=== PATIENT | male | born 1970 | race Caucasian/White ===

== ENCOUNTER → 2020-12-18 12:37 | Outpatient (BNVA) | payer SELFPAY | PROVIDERS: PCP Nurse Practitioner Family; Visit Provider Physician Assistant Medical | DX: R76.11 Nonspecific reaction to tuberculin skin test without active tuberculosis (principal) ==

== ENCOUNTER 2021-02-09 09:46 | Outpatient (REF) | payer OTHER, SELFPAY ==
[2021-02-09 10:35] LABS: Binax Internal Control QC Valid; Binax Lot number: 9864; Binax Now Covid-19 Ag Negative (Negative)
== END 2021-02-09 09:47 | disposition home or self-care (01) ==
LOC: HO.LAB 09:46
PROVIDERS: Visit Provider Internal Medicine
DX: Z20.822 Contact with and (suspected) exposure to COVID-19 (principal)
CPT/HCPCS: 36415; C9803

== ENCOUNTER → 2021-02-27 10:51 | Outpatient (REF) | payer OTHER, SELFPAY | LOC: HO.SL 10:51 | PROVIDERS: PCP Nurse Practitioner Family; Visit Provider Nurse Practitioner Family | DX: G47.30 Sleep apnea, unspecified (principal) | CPT/HCPCS: 95806 ==

== ENCOUNTER → 2021-03-26 12:46 | Outpatient (BNVA) | payer OTHER, SELFPAY | PROVIDERS: PCP Nurse Practitioner Family; Referring Provider Nurse Practitioner Family; Visit Provider Psychiatry & Neurology Neurology | DX: G47.33 Obstructive sleep apnea (adult) (pediatric) (principal) | CPT/HCPCS: 99202 ==

== ENCOUNTER → 2021-04-15 10:59 | Outpatient (BNVA) | payer OTHER, SELFPAY | PROVIDERS: PCP Nurse Practitioner Family; Referring Provider Nurse Practitioner Family; Visit Provider Surgery | DX: L72.0 Epidermal cyst (principal) | CPT/HCPCS: 99202 ==

== ENCOUNTER → 2021-11-12 08:04 | Outpatient (BNVA) | payer OTHER, SELFPAY | PROVIDERS: PCP Nurse Practitioner Family; Visit Provider Psychiatry & Neurology Neurology | DX: G47.33 Obstructive sleep apnea (adult) (pediatric) (principal) | CPT/HCPCS: 99212 ==

== ENCOUNTER → 2022-03-25 13:51 | Outpatient (BNV) | payer OTHER, SELFPAY | PROVIDERS: PCP Nurse Practitioner Family; Visit Provider Internal Medicine | DX: D75.1 Secondary polycythemia (principal) | CPT/HCPCS: 99204; 99213; G2211 ==

== ENCOUNTER 2022-03-26 09:09 | Outpatient (REF) | payer OTHER, SELFPAY | END 2022-03-26 09:10 | disposition home or self-care (01) | LOC: HO.BBR 09:09 | PROVIDERS: Visit Provider Internal Medicine | DX: D75.1 Secondary polycythemia (principal) | CPT/HCPCS: 85014; 99195 ==

== ENCOUNTER 2022-04-23 10:45 | Outpatient (REF) | payer OTHER, SELFPAY | END 2022-04-23 10:46 | disposition home or self-care (01) | LOC: HO.BBR 10:45 | PROVIDERS: PCP Nurse Practitioner Family; Visit Provider Internal Medicine | DX: D75.1 Secondary polycythemia (principal) | CPT/HCPCS: 85014; 85018; 99195 ==

== ENCOUNTER 2022-05-29 11:50 | Outpatient (REF) | payer OTHER, SELFPAY | END 2022-05-29 11:51 | disposition home or self-care (01) | LOC: HO.BBR 11:50 | PROVIDERS: Visit Provider Internal Medicine | DX: D75.1 Secondary polycythemia (principal) | CPT/HCPCS: 85014; 85018; 99195 ==

== ENCOUNTER 2022-11-21 08:45 | Outpatient (REF) | payer OTHER, SELFPAY | END 2022-11-21 08:46 | disposition home or self-care (01) | LOC: HO.BBR 08:45 | PROVIDERS: PCP Nurse Practitioner Family; Visit Provider Internal Medicine | DX: D75.1 Secondary polycythemia (principal) | CPT/HCPCS: 85014; 85018; 99195 ==

== ENCOUNTER 2022-12-22 09:28 | Outpatient (REF) | payer OTHER, SELFPAY | END 2022-12-22 09:29 | disposition home or self-care (01) | LOC: HO.BBR 09:28 | PROVIDERS: PCP Nurse Practitioner Family; Visit Provider Internal Medicine | DX: D75.1 Secondary polycythemia (principal) | CPT/HCPCS: 85014; 85018; 99195 ==

== ENCOUNTER 2023-01-28 08:55 | Outpatient (REF) | payer OTHER, SELFPAY | END 2023-01-28 08:56 | disposition home or self-care (01) | LOC: HO.BBR 08:55 | PROVIDERS: PCP Nurse Practitioner Family; Visit Provider Internal Medicine | DX: D75.1 Secondary polycythemia (principal) | CPT/HCPCS: 85014; 85018; 99195 ==

== ENCOUNTER 2023-02-24 07:36 | Outpatient (AMB) | payer OTHER, SELFPAY ==
--- NOTE | 2023-02-24 07:25 | A.OFFPC_ITS ---
Intake Visit Reasons: Medications F/U Allergies lactose [LACTOSE] Allergy (Intermediate, Verified 11/12/21 08:13) NAUSEA & VOMITING Medication List - Last Reconciled 02/24/23 by DAYSI Gardner- bupropion HCl (Wellbutrin SR) 100 mg PO BID 90 days escitalopram oxalate (Lexapro) 20 mg (2 x 10 mg) PO DAILY 90 days Tobacco use date assessed: 11/15/20 HPI Medications F/U HPI Details Depression: Pt reports that he has been taking 20mg of lexapro which is helpful. Will continue this dose. He is also taking bupropion 100mg bid. Pt is having trouble finding a psychiatrist (who was previously prescribing these meds), will have team reach out to pt regarding this. Will refill meds. Denies any SI and HI. NOTE: pt is staying at a friend's house, was having difficulty with his family, had moved to [place] then came back. [facility] Medical History Epidermal cyst Family History Other Mental health disorder Substance use disorder Social History (Updated 03/25/22 @ 14:31 by Nikia Graff) Household Members: Family Housing: Apartment Alcohol intake: current Alcohol intake frequency: holidays/special occasions only Patient Tobacco Use Status: Former Tobacco user Tobacco use type: Cigarette Years Smoked: 30 years service: No Current occupational status: employed Questionnaire Thrive Questionnaire Date Thrive assessed: 11/15/20 Review of Systems Const Reports as per HPI Physical exam (Primary Care) Tobacco/Smoking Status: Tobacco use Status Tobacco use date assessed 11/15/20 01/18/21 10:34 Patient Tobacco Use Status Former Tobacco user 03/26/21 13:10 Tobacco use type Cigarette 03/25/22 14:31 Thrive Assessment: Date of Thrive Assessment Date Thrive assessed 11/15/20 01/18/21 10:34 Const General: cooperative Orientation/consciousness: patient oriented x3 Neuro General: patient oriented x3 Psych Appearance: grossly normal Mental Status: mental status grossly normal Speech and movement: Clear speech present Affect: normal affect Attitude: cooperative Thought process: Normal thought process present Thought content: Normal thought content present Insight: Good insight present (Psych) Judgement: Good judgement present (Psych) Assessment and Plan Assessment & Plan (1) Anxiety with depression: Code(s): F41.8 - Other specified anxiety disorders Plan: Meds refilled, team will reach out to pt for a psychiatrist (2) Screening PSA (prostate specific antigen): Code(s): Z12.5 - Encounter for screening for malignant neoplasm of prostate Plan The patient agreed to the use of a medical oncologist for this encounter. Scribed for DAYSI Carreon-BC by Jessi Yu medical oncologist, on 02/24/2023 at 07:25 EST. Orders: Orders Comprehensive [place]. Panel Fast Today Z00.00 - Encounter for general adult medical examination without abnormal findings Prostate Specific Antigen Scr Today Z12.5 - Encounter for screening for malignant neoplasm of prostate Complete Blood Count Auto Diff Today Z00.00 - Encounter for general adult medical examination without abnormal findings TSH reflex Free T4 Today Z00.00 - Encounter for general adult medical examination without abnormal findings UA CC w/rflx Micro + Cult Today Z00.00 - Encounter for general adult medical examination without abnormal findings Lipid Panel Today Z00.00 - Encounter for general adult medical examination without abnormal findings Medications: Changed From bupropion HCl (Wellbutrin SR) 100 mg PO BID To bupropion HCl (Wellbutrin SR) 100 mg PO BID 90 days 180 tabs 0RF From escitalopram oxalate (Lexapro) 20 mg PO DAILY To escitalopram oxalate (Lexapro) 20 mg (2 x 10 mg) PO DAILY 90 days 180 tabs 0RF Refilled bupropion HCl (Wellbutrin SR) 100 mg PO BID 90 days 180 tabs 0RF Coding Level of Care Code Tele Est Pt Level 3 (17926) Diagnoses Anxiety with depression F41.8 Screening PSA (prostate specific antigen) Z12.5
== END 2023-02-24 08:01 | disposition home or self-care (01) ==
PROVIDERS: PCP Nurse Practitioner Family; Visit Provider Nurse Practitioner Family
DX: F41.8 Other specified anxiety disorders (principal); Z12.5 Encounter for screening for malignant neoplasm of prostate
CPT/HCPCS: 99213

== ENCOUNTER 2023-03-04 09:02 | Outpatient (REF) | payer OTHER, SELFPAY | END 2023-03-04 09:03 | disposition home or self-care (01) | LOC: HO.BBR 09:02 | PROVIDERS: PCP Nurse Practitioner Family; Visit Provider Internal Medicine | DX: D75.1 Secondary polycythemia (principal) | CPT/HCPCS: 85014; 85018; 99195 ==

== ENCOUNTER 2023-05-22 09:07 | Outpatient (REF) | payer OTHER, SELFPAY ==
[2023-05-22 10:30] LABS: MANUAL DIFF FLAG NO
[2023-05-22 10:45] LABS: Basophils Percent Auto 0.3 % (0-2); Eosinophils Absolute Auto 0.2 X10*3/uL (0.0-0.4); Eosinophils Percent Auto 3.6 % (0-4); Hematocrit 49.9 % (42.0-52.0); Hemoglobin 16.3 g/dl (14.0-18.0); Imm Gran Abs Auto 0.01 X10*3/uL (0.00-0.03); Imm Gran Pct Auto 0.2 % (0.0-0.4); Lymphocytes Absolute Auto 1.7 X10*3/uL (1.2-4.9); Lymphocytes Percent Auto 28.8 % (20-40); Mean Corpuscular HGB Conc 32.7 g/dl (31.0-36.0); Mean Corpuscular Hemoglobin 26.2 pg (27.0-33.0); Mean Corpuscular Volume 80.2 fL (80.0-98.0); Mean Platelet Volume 10.9 fL (9.4-12.4); Monocytes Absolute Auto 0.5 X10*3/uL (0.1-1.2); Monocytes Percent Auto 8.9 % (2-11); Neutrophils Absolute Auto 3.4 x10*3/uL (2.0-8.3); Neutrophils Percent Auto 58.2 % (45-73); Platelet Count 255 X10*3/uL (160-400); Red Blood Count 6.22 X10*6/uL (4.60-5.80); Red Cell Distribution Width 18.2 % (11.0-16.0); White Blood Count 5.8 X10*3/uL (4.8-10.8)
[2023-05-22 11:15] LABS: Prostate Specific Antigen Scr 1.58 ng/mL (<0.05-4.0)
[2023-05-22 11:47] LABS: TSH reflex Free T4 1.82 uIU/mL (0.32-4.0)
[2023-05-22 11:52] LABS: Anion Gap 13 (12-20)
[2023-05-22 11:58] LABS: Alanine Aminotransferase 31 U/L (0-40); Albumin Level 4.3 g/dL (3.5-5.0); Alkaline Phosphatase 87 U/L (39-117); Aspartate Amino Transferase 21 U/L (5-37); Bilirubin Total 0.4 mg/dL (0.0-1.0); Blood Urea Nitrogen 11 mg/dL (9-16); Calcium 9.4 mg/dL (8.4-10.2); Carbon Dioxide 23 mmol/L (22-29); Chloride 107 mmol/L (96-108); Cholesterol 264 mg/dL (<200); Estimated Glomerular Filt Rate > 60; Glucose Fasting 86 mg/dL (60-99); HDL Cholesterol 39 mg/dL (>40); LDL Cholesterol Calculated 189 mg/dL (<100); Potassium 4.4 mmol/L (3.3-5.1); Sodium 139 mmol/L (135-145); Total Protein 7.5 g/dL (6.5-8.0); Triglycerides 181 mg/dL (<150)
== END 2023-05-22 09:08 | disposition home or self-care (01) ==
LOC: HO.HMGCLDS 09:07
PROVIDERS: Internal Medicine; PCP Nurse Practitioner Family; Visit Provider Nurse Practitioner Family
DX: Z00.00 Encounter for general adult medical examination without abnormal findings (principal); D75.1 Secondary polycythemia; Z12.5 Encounter for screening for malignant neoplasm of prostate
CPT/HCPCS: 36415; 80053; 80061; 84153; 84443; 85025

== ENCOUNTER 2023-05-27 09:06 | Outpatient (REF) | payer OTHER, SELFPAY | END 2023-05-27 09:07 | disposition home or self-care (01) | LOC: HO.BBR 09:06 | PROVIDERS: PCP Nurse Practitioner Family; Visit Provider Internal Medicine | DX: D75.1 Secondary polycythemia (principal) | CPT/HCPCS: 85014; 85018; 99195 ==

== ENCOUNTER 2023-07-27 09:23 | Outpatient (REF) | payer OTHER, SELFPAY | END 2023-07-27 09:24 | disposition home or self-care (01) | LOC: HO.BBR 09:23 | PROVIDERS: PCP Nurse Practitioner Family; Visit Provider Internal Medicine | DX: D75.1 Secondary polycythemia (principal) | CPT/HCPCS: 85014; 85018; 99195 ==

== ENCOUNTER 2023-11-16 13:59 | Outpatient (REF) | payer OTHER, SELFPAY | END 2023-11-16 14:00 | disposition home or self-care (01) | LOC: HO.BBR 13:59 | PROVIDERS: PCP Nurse Practitioner Family; Visit Provider Internal Medicine | DX: D75.1 Secondary polycythemia (principal) | CPT/HCPCS: 85018; 99195 ==

== ENCOUNTER 2024-02-16 10:01 | Outpatient (REF) | payer OTHER, SELFPAY | END 2024-02-16 10:02 | disposition home or self-care (01) | LOC: HO.BBR 10:01 | PROVIDERS: Visit Provider Internal Medicine | DX: D75.1 Secondary polycythemia (principal) | CPT/HCPCS: 85014; 85018; 99195 ==

== ENCOUNTER 2024-02-22 10:58 | Outpatient (AMB) | payer OTHER, SELFPAY ==
--- NOTE | 2024-02-22 11:12 | A.OFFVIS_ITS ---
Vital Signs 02/22/24 11:18 Height 5 ft 11 in Weight 285 lb 6 oz BMI 39.8 BP 120/72 Blood Pressure Location Lt brachial Position Sitting Pulse 80 Pulse Source Pulse Oximeter Pulse Oximetry (%) 99 Oxygen Delivery Method Room Air Intake Visit Reasons: cpap options see workload Intake Note: Patient presents for a follow up for JORGE LUIS and CPAP options last seen 11/2021. Pt reports not having much energy. [employer] Required: No Accompanied by: Self / Same As Patient Allergies lactose [LACTOSE] Allergy (Intermediate, Verified 02/22/24 11:59) NAUSEA & VOMITING Medication List - Last Reconciled 02/22/24 by Jon Bear PA-C bupropion HCl SR (Wellbutrin SR) 100 mg PO BID 90 days escitalopram oxalate 10 mg (1/2 x 20 mg) PO DAILY 90 days MDD 20mg gabapentin ER 300 mg PO QPM HPI Comments Details: 50y/o male comes for follow up of JORGE LUIS. Main complaints-hypersomnia, loud snoring . Home sleep test on 02/28/21 showed severe sleep apnea AHI 51/hr O2 liz 71 % CPAP compliance Report: 11/2023/ - 02/21/2024 CPAP 5-20 cmH20 >4 hours 89days 98% Pressues 7.2- 11.5 Leaks 18.6 to 96.9 AHI is 1.2 He continues to report daytime fatigue, and not feeling refresed in the morning. He has morning headaches, mild headaches by the end of work day, [employer]. He reports discomfort with mask and mask straps always leaking and noisy. He complaints of discomfort bilaterally legs when going to sleep or watching TV at night, the legs feel jumpy and can't get comfortable, he tosses and turns. He denies cramps, or spasms. He tried magnesium 400mg. Has diffficulty falling asleep and staying asleep, he takes unisom OTC then finally falls asleep. He uses a medium sized mask and it covers his mouth and nose, but has indentations in the back of his neck from the straps. Would like to see the sleep dentistry to get evaluated for a mouth gaurd. He has terrible anxiety and sometimes will have a panic attack. He quit smoking, is trying to eat well. Drinks occasionally, stopped using weed. [facility] Medical History Epidermal cyst Family History Other Mental health disorder Substance use disorder Social History Household Members: Family Housing: Apartment Alcohol intake: current Alcohol intake frequency: holidays/special occasions only Patient Tobacco Use Status: Former Tobacco user Tobacco use type: Cigarette Years Smoked: 30 years service: No Current occupational status: employed Review of Systems Const All systems reviewed & are unremarkable except as noted in HPI and below Physical Exam Vital Signs: Last Vital Signs Pulse 80 02/22/24 11:18 BP 120/72 02/22/24 11:18 Pulse Ox 99 02/22/24 11:18 Oxygen Delivery Method Room Air 02/22/24 11:18 BMI result Body Mass Index 39.8 ALert awake oriented X3 Mood- stable Speech- normal Cognition- normal Neck size -21 Const Nutritional Appearance: obese Orientation/consciousness: patient oriented x3 HEENT Other: mallampatti grade 4 Head: Yes normal to inspection Neuro General: patient oriented x3, gait normal, tone normal, moves all extremities and no focal motor deficits Assessment & Plan Assessment & Plan (1) Sleep apnea: Code(s): G47.30 - Sleep apnea, unspecified Category: Medical Qualifiers: Sleep apnea type: unspecified type Qualified Code(s): G47.30 - Sleep apnea, unspecified (2) Obstructive sleep apnea hypopnea, severe: Code(s): G47.33 - Obstructive sleep apnea (adult) (pediatric) Category: Medical (3) Anxiety with depression: Code(s): F41.8 - Other specified anxiety disorders Category: Medical (4) RLS (restless legs syndrome): Code(s): G25.81 - Restless legs syndrome Category: Medical Plan PSG: In lab sleep evaluation for Restless RLS? PLMD? PLMS Will start him on Gabapentin 300mg PO at bedtime. Anxiety and Depression with Panic Attacks: Will continue Escitalopram 20mg PO at bedtime. Will Continue Buproprion 100mg PO BID Referral Dentistry Dental Referral for Mouth Gaurd, as patient can not tolerate the mask, Amazon find liners, set up appt with [facility] for mask and pressure adjustments, trial various liners, silk liners through the sleep store. Discussed ENT - Referral for DISE procedure, he will research it and f/u next time. Discussed Weight loss, BMI is elevated, and daily exercise to manage anxiety and weight loss. Will follow up in 3 months for RLS? PLMD? PLMS? Orders: Referrals Dentistry Referral G47.30 - Sleep apnea, unspecified, G47.33 - Obstructive sleep apnea (adult) (pediatric) Medications: New gabapentin ER take one tablet at bedtime by mouth. 300 mg PO QPM 30 tabs 0RF Restless Legs Syndrome G25.81 - Restless legs syndrome Changed From escitalopram oxalate 20 mg PO DAILY 90 days 90 tabs 1RF F41.8 - Other specified anxiety disorders To escitalopram oxalate May take 10mg PO at night and one 10mg PO in the morning for a total 20mg PO per day. 10 mg (1/2 x 20 mg) PO DAILY 90 days 45 tabs 1RF MDD 20mg F41.8 - Other specified anxiety disorders Coding Level of Care Code Est Pt Level 4 (76462) Diagnoses Sleep apnea, unspecified type G47.30 Sleep apnea type: unspecified type Obstructive sleep apnea hypopnea, severe G47.33 Anxiety with depression F41.8 RLS (restless legs syndrome) G25.81 Time Spent (min) 30 Comment improving
[2024-02-22 11:18] VITALS: BP 120/72; PULSE 80; O2SAT 99; BMI 39.8
== END 2024-02-22 12:09 | disposition home or self-care (01) ==
PROVIDERS: PCP Nurse Practitioner Family; Visit Provider Physician Assistant Medical
DX: G47.30 Sleep apnea, unspecified (principal); G47.33 Obstructive sleep apnea (adult) (pediatric); F41.8 Other specified anxiety disorders; G25.81 Restless legs syndrome
CPT/HCPCS: 99214

== ENCOUNTER → 2024-02-22 10:58 | Outpatient (BNVA) | payer OTHER, SELFPAY | PROVIDERS: PCP Nurse Practitioner Family; Visit Provider Physician Assistant Medical | DX: G47.33 Obstructive sleep apnea (adult) (pediatric) (principal); G47.30 Sleep apnea, unspecified; G25.81 Restless legs syndrome; F41.8 Other specified anxiety disorders | CPT/HCPCS: 99212 ==

== ENCOUNTER 2024-04-20 | Outpatient (REF) | payer OTHER, SELFPAY ==
--- OUTSIDE RECORDS SUMMARY | 2024-08-04 13:03 | XMS_ITS | Clinical Summary ---
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 Role Phone Johanadheeraj Awais Andrade NP Primary Care Provider Allergies Active Allergy Reactions Criticality Noted Date Comments Lactase Unknown 04/24/2024 Medications No known medications Active Problems No known active problems Medical History Medical History Date Comments Anxiety Social History Tobacco Use Types Packs/Day Years Used Date Smoking Tobacco: Former Cigarettes Smokeless Tobacco: Former Tobacco Cessation:Counseling Given: Not Answered Sex and Gender Information Value Date Recorded Sex Assigned at Male 04/24/2024 2:25 PM EDT Legal Sex Male 1:21 PM EDT Gender Identity Male 04/24/2024 2:25 PM EDT Sexual Orientation Straight 04/24/2024 2: 25 PM EDT Obstetrics History Last Filed Vital Signs Vital Sign [place] Time Taken Comments Blood Pressure 120/65 04/24/2024 5:01 PM EDT Pulse 76 04/24/2024 5:01 PM EDT Temperature 36.8 C (98.2 F) 04/24/2024 5:01 PM EDT Respiratory Rate 18 04/24/2024 5:01 PM EDT Oxygen Saturation 97% 04/24/2024 5:01 PM EDT Inhaled Oxygen Concentration - - Weight 127 kg (280 lb) 04/24/2024 1:28 PM EDT Height 177.8 cm (5' 10 ) 04/24/2024 1:28 PM EDT Body Mass Index 40.18 04/24/2024 1:28 PM EDT Plan of Treatment Health Maintenance Due Date Last Done Comments DTaP,Tdap,and Td Vaccines (1 - Tdap) 04/21/1991 Hepatitis B Vaccines (1 of 3 - 19+ 3-dose series) 04/21/1991 Pneumococcal Vaccine: 50+ Ye ars (1 of 1 - PCV) 2022 Zoster Vaccines (1 of 2) 2022 COVID-19 Vaccine (1 - 2023-2 5 season) 2023 Cholesterol Screening (Lipid Panel) 04/24/2024 Colorectal Cancer Screening: Colonoscopy 04/24/2024 Depression Screening 04/24/2024 HIV Screening 04/24/2024 Hepatitis C Screening 04/24/2024 Social Influencers of Health Screening 04/24/2024 Influenza Vaccine (Season Ended) 2024 HIB Vaccines Aged Out No longer eligi ble based on patient's age to complete this topic HPV Vaccines Aged Out No longer eligi ble based on patient's age to complete this topic Hepatitis A Vaccines Aged Out No long er eligible based on patient's age to complete this topic IPV Vaccines Aged Out No longer eligi ble based on patient's age to complete this topic MMR Vaccines Aged Out No longer eligi ble based on patient's age to complete this topic Meningococcal ACWY Vaccine Aged Out N o longer eligible based on patient's age to complete this topic Meningococcal B Vaccine Aged Out No l onger eligible based on patient's age to complete this topic Pneumococcal Vaccine: Pediat rics (0 to 5 Years) and At-Risk Patients (6 to 64 Years) Aged Out No longer eligible b ased on patient's age to complete this topic RSV Immunization Patients Un jose 20 months Aged Out No longer eligible b ased on patient's age to complete this topic Varicella Vaccines Aged Out No longer eligible based on patient's age to complete this topic Insurance [facility] Care Teams 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
== END 2024-04-20 00:01 | disposition home or self-care (01) ==
LOC: CF
PROVIDERS: PCP Nurse Practitioner Family; Visit Provider Physician Assistant
DX: R19.5 Other fecal abnormalities (principal); R23.8 Other skin changes
CPT/HCPCS: 99212

== ENCOUNTER 2024-04-20 14:15 | Outpatient (AMB) | payer OTHER, SELFPAY ==
--- NOTE | 2024-04-20 14:28 | AM.OFFWIN_ITS ---
Intake Vital Signs 04/20/24 14:29 Height 5 ft 11 in Weight 280 lb BMI 39.0 BP 140/90 H Blood Pressure Location Lt brachial Position Sitting Pulse 74 Pulse Source Pulse Oximeter Pulse Oximetry (%) 98 Oxygen Delivery Method Room Air Intake Visit Reasons: EP Parasitic worms, in eye, skin? Intake Note: Patient here for parasitic infection that has been going on for a while now. 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 He sees Awais for PCP and has not seen him for this [place] moving today in L eye and left like he saw a white worm Pt states over last few months he has felt like he has had worsening vision; no double or loss in vision No stool samples taken He said subjective chills and fever without documtated fever He decided for his symptoms he would start a cleanse to get rid of symptoms; 2 weeks ago Pt has done a lot of self research on how to get rid of his symptoms and concerns He feels more anxious over concern for parasites He tried a dog shampoo near L eye due to itching PFSH Medical History Epidermal cyst Family History Other Mental health disorder Substance use disorder Social History Household Members: Family Housing: Apartment Alcohol intake: current Alcohol intake frequency: holidays/special occasions only Patient Tobacco Use Status: Former Tobacco user Tobacco use type: Cigarette Years Smoked: 30 years service: No Current occupational status: employed Review of Systems Const Reports chills, Reports fatigue (he said this is chronic), Reports fever(s) and Denies headache(s) Eyes Denies blind spots, Reports blurry vision, Denies diplopia, Reports itchy eyes and Reports other (itching and concern L eye worm) ENT Denies otalgia, Denies headache(s), Denies nasal congestion and Denies sore throat Card Denies chest pain Resp Denies cough Neuro Denies headache(s) Psych Reports anxiety Endo Reports fatigue (he said this is chronic) Aller/Immun Reports itchy eyes Physical Exam Vital Signs: Last Vital Signs Pulse 74 04/20/24 14:29 BP 140/90 H 04/20/24 14:29 Pulse Ox 98 04/20/24 14:29 Oxygen Delivery Method Room Air 04/20/24 14:29 BMI result Body Mass Index 39.0 General: Non-toxic, NAD. Speaking full sentences. Skin: Warm dry throughout. He has scattered dry patched of skin on sides of face near chaudhary No other rashes or lesions noted to back, chest or arms Eye: EOMI, PERRL. No FB or worms noted in upper or lower eyelids bilaterally HENT: Mucosal moist. Airway patent. Uvula midline. No pharyngeal erythema or edema. No WILLOW MACHINE OPERATOR. Bilateral canals clear. TM non-erythematous, non-bulging. No TM perforation or hemotympanum noted. Respiratory: CTA bilaterally. No wheezes, rales or rhonchi Cardiac: RRR. No murmur MSK: Full ROM extremities. Neurology: Alert. No aphasia or facial droop. Gait without abnormality Psych: Good mood but anxious affect Assessment & Plan Assessment & Plan (1) Loose stools: Code(s): R19.5 - Other fecal abnormalities Plan: Pt concerned he has a systemic parasitic infection There was no worms noted on exam. No skin lesions similarly appearing We will obtain labs to check for infection through stool I provided dermatology referral for skin irritation and concern Pt wanted medication tx and I refused without lab results He is aware he needs ro wait for results from us I told him to d/c any and all herbal or OTC remidies he has been trying for complaint F/U with PCP (2) Skin irritation: Code(s): R23.8 - Other skin changes Plan: see above Orders: Orders Giardia Ag Stool EIA Today R19.5 - Other fecal abnormalities GI Panel Today R19.5 - Other fecal abnormalities Ova and Parasite Today R19.5 - Other fecal abnormalities Referrals Dermatology Referral R23.8 - Other skin changes Coding Level of Care Code Est Pt Level 3 (41919) Diagnoses Loose stools R19.5 Skin irritation R23.8
[2024-04-20 14:29] VITALS: BP 140/90; PULSE 74; O2SAT 98; BMI 39.0
== END 2024-04-20 15:41 | disposition home or self-care (01) ==
PROVIDERS: PCP Nurse Practitioner Family; Visit Provider Physician Assistant
DX: R19.5 Other fecal abnormalities (principal); R23.8 Other skin changes

== ENCOUNTER 2024-04-21 08:55 | Outpatient (REF) | payer OTHER, SELFPAY ==
[2024-04-22 07:48] LABS: Campylobacter Not Detected (Not Detect.); Plesiomonas shigelloides Not Detected (Not Detect.)
[2024-04-22 07:49] LABS: Cryptosporidium Not Detected (Not Detect.); Cyclospora cayetanensis Not Detected (Not Detect.); E. coli EAEC Not Detected (Not Detect.); E. coli EPEC Not Detected (Not Detect.); E. coli ETEC Not Detected (Not Detect.); E. coli STEC Not Detected (Not Detect.); Entamoeba histolytica Not Detected (Not Detect.); Giardia lamblia Not Detected (Not Detect.); Salmonella Not Detected (Not Detect.); Shigella sp./EIEC Not Detected (Not Detect.); Vibrio Not Detected (Not Detect.); Vibrio Cholerae Not Detected (Not Detect.); Yersinia enterocolitica Not Detected (Not Detect.)
[2024-04-22 07:50] LABS: Adenovirus F 40/41 Not Detected (Not Detect.); Astrovirus Not Detected (Not Detect.); Norovirus GI/GII Not Detected (Not Detect.); Rotavirus A Not Detected (Not Detect.); Sapovirus Not Detected (Not Detect.)
== END 2024-04-21 08:56 | disposition home or self-care (01) ==
LOC: HO.HMGCLNP 08:55
PROVIDERS: PCP Nurse Practitioner Family; Visit Provider Physician Assistant
DX: R19.5 Other fecal abnormalities (principal)
CPT/HCPCS: 87177; 87209; 87329; 87507

== ENCOUNTER 2024-04-21 20:50 | Emergency (ER) | payer OTHER, SELFPAY ==
--- NOTE | 2024-04-21 | ECG_ITS ---
Test Reason : WEAKNESS Blood Pressure : */* mmHG Vent. Rate : 81 BPM Atrial Rate : 81 BPM P-R Int : 130 ms QRS Dur : 100 ms QT Int : 388 ms P-R-T Axes : 46 44 60 degrees QTcB Int : 450 ms Normal sinus rhythm Nonspecific ST and T wave abnormality Abnormal ECG No previous ECGs available Referred By: Generic ED Physician Electronically Signed By: SARA TERRY
[2024-04-21 21:01] VITALS: BP 142/79; PULSE 87; RESP 18; TEMP 36.9; O2SAT 97; BMI 40.2
[2024-04-21 21:51] LABS: Basophils Percent Auto 0.3 % (0-2); Eosinophils Absolute Auto 0.2 X10*3/uL (0.0-0.4); Eosinophils Percent Auto 2.8 % (0-4); Hematocrit 38.6 % (42.0-52.0); Hemoglobin 14.2 g/dl (14.0-18.0); Imm Gran Abs Auto 0.01 X10*3/uL (0.00-0.03); Imm Gran Pct Auto 0.2 % (0.0-0.4); Lymphocytes Absolute Auto 2.1 X10*3/uL (1.2-4.9); Lymphocytes Percent Auto 31.9 % (20-40); MANUAL DIFF FLAG NO; Mean Corpuscular HGB Conc 36.8 g/dl (31.0-36.0); Mean Corpuscular Hemoglobin 30.7 pg (27.0-33.0); Mean Corpuscular Volume 83.4 fL (80.0-98.0); Mean Platelet Volume 10.2 fL (9.4-12.4); Monocytes Absolute Auto 0.4 X10*3/uL (0.1-1.2); Monocytes Percent Auto 6.5 % (2-11); Neutrophils Absolute Auto 3.7 x10*3/uL (2.0-8.3); Neutrophils Percent Auto 58.3 % (45-73); Platelet Count 224 X10*3/uL (160-400); Red Blood Count 4.63 X10*6/uL (4.60-5.80); Red Cell Distribution Width 12.2 % (11.0-16.0); White Blood Count 6.4 X10*3/uL (4.8-10.8)
[2024-04-21 22:05] LABS: Alanine Aminotransferase 32 U/L (0-40); Albumin Level 4.3 g/dL (3.5-5.0); Alkaline Phosphatase 107 U/L (39-117); Anion Gap 14 (12-20); Aspartate Amino Transferase 21 U/L (5-37); Bilirubin Total 0.3 mg/dL (0.0-1.0); Blood Urea Nitrogen 16 mg/dL (9-16); Calcium 9.7 mg/dL (8.4-10.2); Carbon Dioxide 23 mmol/L (22-29); Chloride 108 mmol/L (96-108); Creatinine Clr Calc Pharmacy 146.3; Estimated Glomerular Filt Rate > 60; Glucose Random 109 mg/dL (60-115); Potassium 3.5 mmol/L (3.3-5.1); Sodium 141 mmol/L (135-145); Total Protein 7.4 g/dL (6.5-8.0)
[2024-04-21 22:28] LABS: Influenza A PCR NEGATIVE (Negative); Influenza B PCR NEGATIVE (Negative); Resp Syncy Virus RNA Qual PCR NEGATIVE (Negative); SARS COV2 PCR INHOUSE NEGATIVE (Negative)
[2024-04-22] VITALS: BP 130/71; PULSE 75; RESP 18; TEMP 36.8; O2SAT 97
--- NOTE | 2024-04-22 00:33 | PC.NURSE ---
patient rang call man for RN. RN went in and patient asking when he will be seen. explained to patient that he is on the Drs list and will be seen when it is his turn. geno got up form bed and stated this is fucking ridiculous and I am leaving . left through ems door to waiting room.
== END 2024-04-22 00:36 | disposition left against medical advice (07) ==
PROVIDERS: Emergency Provider Internal Medicine; PCP Nurse Practitioner Family
DX: R19.5 Other fecal abnormalities (principal); R68.83 Chills (without fever); Z03.818 Encounter for observation for suspected exposure to other biological agents ruled out; Z53.21 Procedure and treatment not carried out due to patient leaving prior to being seen by health care provider
CPT/HCPCS: 0241U; 80053; 83735; 85025; 93005; 99281; 99283

== ENCOUNTER → 2024-04-21 21:39 | Outpatient (BNV) | payer OTHER, SELFPAY | PROVIDERS: Emergency Provider Internal Medicine; PCP Nurse Practitioner Family; Visit Provider Internal Medicine | DX: R53.1 Weakness (principal); R94.31 Abnormal electrocardiogram [ECG] [EKG] | CPT/HCPCS: 93010 ==

== ENCOUNTER 2024-05-10 07:11 | Outpatient (AMB) | payer OTHER, SELFPAY ==
--- NOTE | 2024-05-10 07:49 | A.OFFPC_ITS ---
Intake Visit Reasons: discuss concerns re care Allergies lactose [LACTOSE] Allergy (Intermediate, Verified 04/21/24 21:05) NAUSEA & VOMITING Tobacco use date assessed: 11/15/20 HPI discuss concerns re care HPI Details History of Present Illness The patient is a 54-year-old male presenting with concerns regarding self- reported parasitic infestation and anxiety management. He reports having what he described as parasites in his face and visually in his stool, alongside associated symptoms such as the sensation in his cheeks and experiencing chills during the time of these sensations and observations. Despite a negative ova parasite panel, he mentions treatment at another medical facility. Currently, he expresses no active symptoms or visible signs of parasites but does ? residual to left cheek??? His history reflects dissatisfaction with prior anxiety care and parasite treatment at our [place] facility, seeking specific anxiety treatment without having received such (sounds as though pt was looking for a short duration benzo at the time). Review of Systems - General: Denies current fever or chill s. - Skin: Reports sensation of parasites o n the left cheek. - Eyes: Reports sensation of parasites i n his eyes. - Gastrointestinal: Reports past observa tion of white and black discolorations in stool; denies current presence. - Respiratory: Denies chest pain or shor tness of breath. Plan Given the patient's reported symptoms and anxiety, a focus on psychiatric evaluation and anxiety management should be prioritized. Pt was apparently trina ated for these parasites . He is requesting increasing his buproprione, which may help with some of his anxieties/depression. Will increase dose, will follow up with pt in office in approx 3 months. Discussion Notes Patient Instructions - Attend a follow-up evaluation to explo re anxiety management. - Consider psychiatric counseling or the rapy. - Monitor for any reoccurrence of sympto ms and seek care if needed. - Discuss medication options with a psyc hiatrist if anxiety persists. - Stay informed about your health and co mmunicate any concerns about treatment. PFSH Medical History Epidermal cyst Family History Other Mental health disorder Substance use disorder Social History Household Members: Family Housing: Apartment Alcohol intake: current Alcohol intake frequency: holidays/special occasions only Patient Tobacco Use Status: Former Tobacco user Tobacco use type: Cigarette Years Smoked: 30 years service: No Current occupational status: employed Questionnaire Thrive Questionnaire Date Thrive assessed: 11/15/20 Physical exam (Primary Care) Tobacco/Smoking Status: Tobacco use Status Tobacco use date assessed 11/15/20 02/24/23 07:30 Patient Tobacco Use Status Former Tobacco user 04/20/24 14:36 Tobacco use type Cigarette 02/24/23 07:30 Thrive Assessment: Date of Thrive Assessment Date Thrive assessed 11/15/20 02/24/23 07:30 Coding Level of Care Code Tele Est Pt Level 3 (61636) Diagnoses Screening for colon cancer Z12.11 Anxiety F41.9 Depression F32.A Parasitic infection B89 Assessment & Plan Assessment & Plan (1) Screening for colon cancer: Code(s): Z12.11 - Encounter for screening for malignant neoplasm of colon Category: Medical (2) Anxiety: Code(s): F41.9 - Anxiety disorder, unspecified Category: Medical (3) Depression: Code(s): F32.A - Depression, unspecified Category: Medical (4) Parasitic infection: Comment: perceived, communicated by pt Code(s): B89 - Unspecified parasitic disease Category: Medical Plan . Orders: Orders Prostate Specific Antigen Scr Today Z12.5 - Encounter for screening for malignant neoplasm of prostate Referrals Gastroenterology Referral Z12.11 - Encounter for screening for malignant neoplasm of colon Medications: Changed From bupropion HCl SR (Wellbutrin SR) 100 mg PO BID 90 days 180 tabs 1RF To bupropion HCl SR 150 mg PO BID 90 days 180 tabs 1RF
== END 2024-05-10 08:07 | disposition home or self-care (01) ==
LOC: HO.HMCC 07:11
PROVIDERS: PCP Nurse Practitioner Family; Visit Provider Nurse Practitioner Family
DX: Z12.11 Encounter for screening for malignant neoplasm of colon (principal); F41.9 Anxiety disorder, unspecified; F32.A Depression, unspecified; B89 Unspecified parasitic disease